=== PATIENT | female | born 1965 ===

== ENCOUNTER 2017-07-31 09:40 | Inpatient (IN) | payer MEDICAID ==
[2017-07-23 14:32] VITALS: BMI 24.1
[2017-07-31] MEDS ORDERED: ceFAZolin IV 1 gm in Dextrose 2 GM/100 ML BAG IVPB ONE (10:44)
[2017-07-31] MEDS ORDERED: Propofol 10 mg/ml Inj (20 ML) ONE (10:59)
[2017-07-31] MEDS ORDERED: ePHEDrine 50 mg/ml Inj ONE (10:59)
[2017-07-31] MEDS ORDERED: Midazolam 2 MG/2 ML VIAL ONE (10:59)
[2017-07-31] MEDS ORDERED: Rocuronium 10 mg/ml (5 ml) ONE (10:59)
[2017-07-31] MEDS ORDERED: Succinylcholine 200 mg/10 ml Inj IV ONE (11:00)
[2017-07-31] MEDS ORDERED: Lidocaine 4% (Laryng-O-Jet) Kit MM ONE (11:00)
[2017-07-31] MEDS ORDERED: Dexamethasone 4 mg/1 ml ONE (12:23)
[2017-07-31] MEDS ORDERED: Bupivacaine HCl/Epi 0.5% 1:20000 30 ML SOL IJ ONE (12:30)
[2017-07-31] MEDS ORDERED: Triamcinolone Acetonide 40 mg/mL Inj ONE (13:00)
[2017-07-31] MEDS ORDERED: Lactated Ringer's 1,000 ML IV ONE ×2 (13:15→13:16)
[2017-07-31] MEDS ORDERED: Methylene Blue 10 mg/mL(10ml) IV ONE (13:22)
[2017-07-31] MEDS ORDERED: DiphenhydrAMINE 50 mg/ml Inj ONE (14:14)
[2017-07-31] MEDS ORDERED: Desflurane Inhalation Anesthetic Liq (240 ml) ONE (14:19)
--- NOTE | 2017-07-31 14:49 | PCM.SURG1 ---
Surgeon's Initial Post Op Note - Surgeon's Notes Surgeon: vandana amaya md Lead Sprinkler: rambo PASCUAL Type of Anesthesia: General Endo, Local Pre-Operative Diagnosis: Advanced vaginal vault prolapse. Cystocele stage IV. Urinary incontinence mixed. Chronic pelvic pain and pressure Operative Findings: Cystocele stage 4. Vaginal vault prolapse after hysterectomy. Extensive adhessions; bladder and bowel adhesisons. Extermly weak connective tissue, paper thin anterior vaginal wall under the bladder c/w stage 4 cystocele. Due to Extremly weak and thin vesicovaginal wall, decision made to abort placement of mesh (SCP) as planned initialy due to high risk of mesh erosion. Attempts were made to separate the bladder from the anterior vaginal wall in an attemp to placed the Ymesh used in the sacrocolpopexy. The bladder was tightly adherant to the thin vaginal wall and possible bladder defect was noted. The defect was isolated, appeared small near the dome of the bladder. The noted small simple defect near the dome of the bladder was repaired in 2 layers with 2-0 and 3-0 vicryl sutures in continurus fashion and resulted in a water tight repair. Cystosocpy and leak test were performed with negative findings. A uterosacroligament suspenssion was completed to reduce the epical prolapse but with limited results. Post-Operative Diagnosis: Advanced vaginal vault prolapse after hysterectomy. Cystocele stage IV. Urinary incontinence mixed. Pelvic bowel and bladder adhessions. Chronic pelvic pain and pressure Operation Performed: Robotic Uterosacroligament suspenssions (aborted Sacrocolpopexy). Robotic enterolysis. Robotic cystotomy repair. Diagnostic cystoscopy Specimen/Specimens Removed: none Estimated Blood Loss: EBL {In ML}: 10 Blood Products Given: N/A Drains Used: No Drains Post-Op Condition: Good Date of Surgery/Procedure: 07/31/17 Time of Surgery/Procedure: 14:51
--- NOTE | 2017-07-31 15:01 | PCM.OP ---
Operative Report - Operative Report Date of Surgery/Procedure: 07/31/17 Time of Surgery/Procedure: 14:59 Surgeon: vandana amaya md Push Bench Operator Helper: rambo PASCUAL Anesthesia/Sedation: Gen with ET tube, Aracely Hurd MD Pre-Operative Diagnosis: Advanced vaginal vault prolapse. Cystocele stage IV. Urinary incontinence mixed. Chronic pelvic pain and pressure Post-Operative Diagnosis: Advanced vaginal vault prolapse after hysterectomy. Cystocele stage IV. Urinary incontinence mixed. Pelvic bowel and bladder adhessions. Chronic pelvic pain and pressure. Abdominal keloid scars. Indication for Surgery: Worsening vaginal vault prolapse following hysterectomy. Worsening pain and pressure as a result of cystocele. Worsening mixed urinary incontinence. Operative Findings: Cystocele stage 4. Vaginal vault prolapse after hysterectomy. Extensive adhessions; bladder and bowel adhesisons. Extermly weak connective tissue, paper thin anterior vaginal wall under the bladder c/w stage 4 cystocele. Due to Extremly weak and thin vesicovaginal wall, decision made to abort placement of mesh (SCP) as planned initialy due to high risk of mesh erosion. Attempts were made to separate the bladder from the anterior vaginal wall in an attemp to placed the Ymesh used in the sacrocolpopexy. The bladder was tightly adherant to the thin vaginal wall and possible bladder defect was noted. The defect was isolated, appeared small near the dome of the bladder. The noted small simple defect near the dome of the bladder was repaired in 2 layers with 2-0 and 3-0 vicryl sutures in continurus fashion and resulted in a water tight repair. Cystosocpy and leak test were performed with negative findings. A uterosacroligament suspenssion was completed to reduce the epical prolapse but with limited results. Procedure/Operation Description: Robotic Uterosacroligament suspenssions ( aborted Sacrocolpopexy). Robotic enterolysis. Robotic cystotomy repair. Revision excision of abdominal keloid scars. (5 incisions). Diagnostic cystoscopy. detailed operative report. This is a 51 years old female with long-standing and worsening symptoms of bladder prolapse and associated urinary incontinence and pelvic pain for several years. The patient underwent a total robotic hysterectomy for uterine prolapse in the recent past, and at the time, declined any colpo-suspension with mesh. The hysterectomy was completed along with uterosacral ligament suspension avoiding mesh graft augmentation. The prior hysterectomy and uterosacro-ligament suspension corrected the severe epical uterine prolapse but with limited support for the cystocele, stage III at the time of surgery. Gradually since her robotic procedure, the bladder prolapse worsened to a stage 4 with worsening bladder dysfunction including mixed urinary incontinence. The patient is currently reporting a vaginal bulge and pressure that is worsening over time. The patient reported these symptoms to be debilitating and adversely affecting her quality of life. The patient is also reporting leakage of urine upon exertion, coughing sneezing as well as urgency incontinence. A complete work up in the office which included an ultrasound and urodynamic study revealed a picture of mixed urinary incontinence. The patient had a long period of failed conservative management. Following a complete workup, a long discussion of surgical vs. other conservative management was completed. A decision was made to precede with a robotic assisted Sacrocolpopexy using polypropylene mesh graft to correct for the severe vaginal vault prolapse following the hysterectomy. After a detailed discussion about the pros and cons of using polypropylene mesh for colposuspension, all benefits and risks were reviewed including but not limited to the risk of infection, mesh erosion / extrusion, chronic pain and dyspareunia. In addition, the FDA warning about mesh utilization for prolapse and incontinence surgery was reviewed in details, and specific written consent was obtained. The patient elected to proceed with a mesh Sacrocolpopexy procedure today fully understanding the risk associated with utilizing mesh material. Other alternatives were also offered to the patient, including a biological graft such as porcine sling as well as the patient owns fascia as sling material, she elected to proceed with a mesh graft despite the associated risks. The patient was also informed of the possible difficulty of completing the Sacrocolpopexy in light of severe adhesions and distorted anatomy following the hysterectomy. After proper consent was obtained from the patient, patient was taken to the operating room where general anesthesia was obtained without difficulty. She was placed in the dorsal lithotomy position, her legs were placed in adjustable Ildefonso stirrups, and careful attention was placed not to over-flex or over-rotate the lower extremities. Flores catheter was inserted under sterile conditions. She was prepped and draped appropriately for a robotic sacrocolpopexy procedure. Examination under anesthesia revealed a widened introitus with a fourth degree cystourethrocele and epical vaginal prolapse. After appropriate prep, the patient was draped in the usual manner for robotic surgery. While tenting the abdominal wall, a Veres needle was inserted through the umbilicus and pnuemoperitoneum was obtained with approx. 3L of CO2 gas. 3 Robotic ports were used for this procedure. We used the same old incisions used for the robotic procedure completed prior. The patient formed keloids on the prior incisions and all keloids were excised and sent to pathology. The first incision, .8 cm in length was made approx. 4 cm superior to the umbilicus and a trocar was inserted. A robotic camera was inserted and an initial survey was completed. Extensive peritoneal adhesions were noted in the posterior cul-de-sac and involving loops of bowel in the pelvic and abdominal cavity. Both ovaries were noted, uterus and fallopian tubes were surgically absent / removed. Tight adhesions over the vaginal cuff were noted. Significant connective tissue laxity and weakness was noted as the instruments and trocar were inserted with little resistance. The second robotic trocar was inserted through an incision approx. 5 cm superior to the iliac crest on the left side and a third robotic port inserted in a mirror image on the contralateral side. The third robotic port was inserted on the patient right side approx. 7 cm right lateral to the camera port. An special event assistant port was inserted 7 cm left lateral the camera port. All robotic ports were inserted through 8 mm incisions. The patient was placed in Trendelenburg position and lateral side robotic docking was accomplished. Extensive lysis of adhesions was completed to allow access to the vaginal cuff and over the sacrum region in the midline. The peritoneum over and near the sacrum promontory was entered sharply and the incision was extended. The longitudinal ligament over the sacrum was cleared and isolated with good hemostasis. Attention was then turned to the presacral space. The peritoneum overlying it was tented upward and incised sagittally all the way down to the posterior vaginal wall keeping the right ureter in view at all times. The longitudinal ligament over the scarum was cleared and ready for the anchoring of the long arm of the Y mesh. Attention was them turned to the anterior vaginal wall and vaginal cuff. Multiple carful and meticulous attempts were made to separate the bladder from the anterior vaginal wall, using blunt and sharp dissection, including retrograde filling the bladder to aid in the bladder dissection. Tight bladder adhesions to the vaginal cuff were noted and lysed off. In the process of clearing the anterior vaginal wall for the placement of mesh, it was noted that the vaginal wall was paper thin, essentially paper thin especially close to the vaginal cuff. Decision was made to abort placing a mesh graft in the anterior vaginal wall to avoid a high likelihood of mesh erosion and position bladder extrusion of mesh. Decision was made to abort the Sacrocolppexy procedure with mesh and to reinforce the vaginal cuff and the current epical suspension with a revision of uterusacroligament suspension instead. A significant concern of potential vaginal cuff dehiscence was raised inspecting the thin vaginal wall under the bladder. An attempt was made to dissect the bladder further from the vaginal cuff in order to reinforced the cuff. At this point, a possible bladder defect was noted near the vaginal cuff. The bladder was retrograde filled with dilute methylene blue solution and the defect was clearly noted and tagged. Further dissection to isolate the defect was completed and an inspection of the defect revealed a simple cystotomy near the dome of the bladder. Following the isolation of the bladder defect, a two layer closure was completed using 2-0 and 3-0 vycryl suture material in continues fashion. The bladder was once again retrograde filled to check for bladder wall integrity and leak test was performed. The bladder was filled with dilute methylene blue solution and the repair appeared to be water tight with no leakage. Significant length of the vaginal cuff was now clear of the bladder and the cuff was reinforced with 2-0 v -lock suture material, the uterosacral ligaments were suspended at the cuff. The ureters were noted to be clear of the uterosacral ligaments and avoiding any kinking or abstracting the ureters the vaginal cuff was suspended. The peritoneum was closed with 2-0 monocryl along the previously made incisions along the sacrum promontory and pericolic gutter. The peritoneum was closed over the vaginal cuff with similar suture. The pelvis was irrigated copiously and freed of all clots and debris. Excellent hemostasis was noted. The abdomen was throughout irrigated and cleared of all clots and debris. FloSeal was applied to the incision sites. Excellent hemostasis was again noted. All robotic and laparoscopic instruments removed under direct visualization. The robotic arms were undocked, and a da Dave robotic system was wheeled away from the patient's bedside. Both special event assistant and camera ports were closed at the fascial layer utilizing a 2-0 Vicryl suture material in interrupted fashion. Pneumoperitoneum was reduced and all skin incisions were closed utilizing 4-0 Monocryl in a subcutaneous fashion. The fascia was closed with o Vicryl and the skin was closed with a 4-0 monocryl in subQ fashion. Dermabond was applied to all incisions. At the conclusion of this procedure, a diagnostic cystoscopy was completed. The Flores catheter was removed; the bladder was distended with approximately 300 cc of normal saline. A 30 cystoscope was introduced and a survey of the bladder anatomy was completed. The trigone appeared normal both ureter urfices noted normal efluxing urine freely, the dome of the bladder appeared normal with a small simple repair line which was water tight. The urethra appeared normal. A Flores catheter was reinserted. Patient emerged from general anesthesia without difficulty, and was taken to recovery room in stable condition. Prior to incision the patient received antibiotics, prior to closure sponge lap and needle counts were correct x2. Estimated Blood Loss: 10 Blood Replaced: none Sponge/Instrument Count: correct times 2 Drains: none Complications: simple cystotomy repair and reiforcememnt of weak vaginal cuff. Sacrocolpopexy was aborted due to extremly thin anterior vaginal wall and a high risk likelehood of potential mesh erosion. Specimen: none Discharge & Condition: pt admitted as IP
[2017-07-31] MEDS ORDERED: Oxycodone/Acetaminophen 5/325 mg Tab PO PRN (15:04)
[2017-07-31] MEDS ORDERED: Sodium Chloride 0.9% 1,000 ML IV SCH (15:15)
[2017-07-31] MEDS ORDERED: Lactated Ringer's 1,000 ML IV SCH (15:15)
[2017-07-31] MEDS: HYDROmorphone 0.5 mg/0.5 ml ISec IVP PRN ×2 (16:20→16:40)
[2017-07-31] MEDS ORDERED: ceFAZolin IV 2 gm in Dextrose 2 GM/50 ML BAG IVPB SCH (17:00)
[2017-07-31] MEDS: ceFAZolin IV 2 gm in Dextrose 2 GM/50 ML BAG IVPB SCH (20:45)
[2017-08-01] MEDS: ceFAZolin IV 2 gm in Dextrose 2 GM/50 ML BAG IVPB SCH ×3 (04:14→20:28)
[2017-08-01] MEDS ORDERED: VITAMIN B COMPLEX PO SCH (09:00)
--- NOTE | 2017-08-01 09:17 | CP.PCM.CON ---
History of Present Illness - History of Present Illness History of Present Illness: 51 yo ,f, PMhx/o HTN, DM , HLP , Depresson , Cystocele is seen after usrgery POD #1 s/p robotic uterosacral ligament suspension, enterolysis, cystostomy repair, cystoscopy. Patient reports a surgery about 1 year ago, but states that 2 months after last surgery started with sympotms again with bladder prolapse sensation any time she urinates and dysuria, assoiciated with occs urinary incontinence. she denies fever, nausea, vomiting, diarrhea, abd pain. Patient seen and examined wit Attending Dr Moni velasquez. No overnight events, pain controlled with medications, on antibiotics and liquid diet tolerated.jackson with normal yellow urine amount 200 ml Allergies: tramadol PSurgHx: cystocele 2016, B/l bunion PObhx: A4 menopause 4 years ago. PShx: No ETOH,rect drugs, cig Past Patient History - Past Medical History & Family History Past Medical History?: Yes - Past Social History Smoking Status: Never Smoked - CARDIAC Hx Cardiac Disorders: No - PULMONARY Hx Respiratory Disorders: No - NEUROLOGICAL Hx Neurological Disorder: Yes Hx Migraine: Yes - HEENT Hx HEENT Problems: No - RENAL Hx Chronic Kidney Disease: No - ENDOCRINE/METABOLIC Hx Endocrine Disorders: Yes Hx Diabetes Mellitus Type 2: Yes - HEMATOLOGICAL/ONCOLOGICAL Hx Blood Disorders: No Hx Blood Transfusions: No - INTEGUMENTARY Hx Dermatological Problems: No - MUSCULOSKELETAL/RHEUMATOLOGICAL Hx Musculoskeletal Disorders: No - GASTROINTESTINAL Hx Gastrointestinal Disorders: No - GENITOURINARY/GYNECOLOGICAL Hx Genitourinary Disorders: No - PSYCHIATRIC Hx Psychophysiologic Disorder: No Hx Anxiety: Yes Hx Emotional Abuse: No Hx Physical Abuse: No - SURGICAL HISTORY Hx Surgeries: Yes Hx Hysterectomy: Yes (LAPAROSCOPIC DIMITRI-BSO) Hx Orthopedic Surgery: ([email or web address]) Other/Comment: D/C, bladder lift - ANESTHESIA Hx Anesthesia: Yes Hx Anesthesia Reactions: No Hx Malignant Hyperthermia: No Has any member of the family had a problem w/ anesthesia?: No Meds Home Medications: Home Medication List Medication Instructions Recorded Confirmed Type Docusate [Colace] 100 mg PO BID cap 08/01/17 Rx Nitrofurantoin Macrocrystals 100 mg PO BID #20 cap 08/01/17 Rx [Macrobid] oxyCODONE/Acetaminophen [Percocet 2 tab PO Q4H PRN #30 tab 08/01/17 Rx 5/325 mg Tab] Allergies/Adverse Reactions: Allergies Allergy/AdvReac Type Severity Reaction Status Date / Time tramadol Allergy ANAPHYLAXIS Verified 07/31/17 11:15 - Medications Medications: Current Medications Atorvastatin Calcium (Lipitor) 10 mg PO HS [facility] Duloxetine HCl (Cymbalta) 20 mg PO DAILY [facility] Last Admin: 07/31/17 21:55 Dose: 20 mg Home Med (Empagliflozin [Jardiance]) 25 mg PO DAILY [facility] Home Med (Vitamin B Complex [Balance B-100]) 1 tab PO DAILY [facility] Hydromorphone HCl (Dilaudid) 2 mg IVP Q3H PRN PRN Reason: Pain, severe (8-10) Last Admin: 08/01/17 07:22 Dose: 2 mg Lactated Ringer's (Lactated Ringer's) 1,000 mls @ 125 mls/hr IV .Q8H [facility] Last Admin: 08/01/17 00:09 Dose: 125 mls/hr Sodium Chloride (Sodium Chloride 0.9%) 1,000 mls @ 100 mls/hr IV .Q10H [facility] Last Admin: 08/01/17 01:15 Dose: Not Given Cefazolin Sodium/Dextrose (Ancef Iv 2 Gm Duplex) 2 gm in 50 mls @ 50 mls/hr IVPB Q8H [facility] PRN Reason: Protocol Last Admin: 08/01/17 04:14 Dose: 50 mls/hr Ketorolac Tromethamine (Toradol) 30 mg IVP Q6H [facility] Last Admin: 08/01/17 04:13 Dose: 30 mg Metformin HCl (Glucophage) 1,000 mg PO DAILY [facility] Ondansetron HCl (Zofran Inj) 4 mg IVP Q6 PRN PRN Reason: Nausea/Vomiting Oxycodone/Acetaminophen (Percocet 5/325 Mg Tab) 2 tab PO Q4H PRN PRN Reason: Pain, moderate (4-7) Stop: 08/03/17 15:05 Physical Exam - Constitutional Appears: No Acute Distress - Head Exam Head Exam: ATRAUMATIC, NORMOCEPHALIC - Eye Exam Eye Exam: Normal appearance - Respiratory Exam Respiratory Exam: Clear to Auscultation Bilateral. absent: Rales, Rhonchi, Wheezes - Cardiovascular Exam Cardiovascular Exam: REGULAR RHYTHM, +S1, +S2 - GI/Abdominal Exam GI & Abdominal Exam: Normal Bowel Sounds, Soft, Tenderness. absent: Guarding, Rebound Additional comments: Generalized mild TD, no rebound, no guarding - Extremities Exam Extremities exam: Positive for: normal inspection. Negative for: pedal edema - Back Exam Back exam: NORMAL INSPECTION - Neurological Exam Neurological exam: Alert, Oriented x3 - Psychiatric Exam Psychiatric exam: Normal Mood - Skin Skin Exam: Normal Color Results - Vital Signs Recent Vital Signs: Last Vital Signs Temp 98.6 F 08/01/17 07:46 Pulse 84 08/01/17 07:46 Resp 18 08/01/17 07:46 BP 113/63 08/01/17 07:46 Pulse Ox 96 08/01/17 07:46 - Labs Labs: Laboratory Results - last 24 hr 07/31/17 07/31/17 10:34 15:09 POC Glucose (mg/dL) 155 H 236 H Assessment & Plan - Assessment and Plan (Free Text) Plan: Assessment and Plan (1) Vaginal vault prolapse Assessment & Plan: POD#1 s/p robotic uterosacral ligament suspension, enterolysis, cystostomy repair, cystoscopy -plan for d/c home when pain controlled -pain meds -encourage OOB -pain meds -advance diet -jackson to remain until follow up visit 08/10 Status: Acute 2) HTN controlled 3) DM chronic 4) Depression chronic (5) Pelvic pain Status: Chronic 6) DVT Prophylaxis SCD
--- NOTE | 2017-08-01 12:42 | CP.PCM.PN ---
Subjective - Date & Time of Evaluation Date of Evaluation: 08/01/17 Time of Evaluation: 12:41 - Subjective Subjective: Patient still complaining of significant pain when she moves. Advised pt manuel to remain until f/u visit 08/10. Spoke with daughter via telephone per pt request. Denies CP/SOB/dizziness/n/v. Objective - Vital Signs/Intake and Output Vital Signs (last 24 hours): Temp Pulse Resp BP Pulse Ox 98.6 F 84 18 113/63 96 08/01/17 07:46 08/01/17 07:46 08/01/17 07:46 08/01/17 07:46 08/01/17 07:46 Intake and Output: 08/01/17 08/01/17 06:59 18:59 Intake Total 425 Output Total 170 Balance 255 - Medications Medications: Current Medications Atorvastatin Calcium (Lipitor) 10 mg PO HS [facility] Duloxetine HCl (Cymbalta) 20 mg PO DAILY [facility] Last Admin: 08/01/17 09:39 Dose: 20 mg Home Med (Empagliflozin [Jardiance]) 25 mg PO DAILY [facility] Home Med (Vitamin B Complex [Balance B-100]) 1 tab PO DAILY [facility] Hydromorphone HCl (Dilaudid) 2 mg IVP Q3H PRN PRN Reason: Pain, severe (8-10) Last Admin: 08/01/17 07:22 Dose: 2 mg Lactated Ringer's (Lactated Ringer's) 1,000 mls @ 125 mls/hr IV .Q8H [facility] Last Admin: 08/01/17 00:09 Dose: 125 mls/hr Sodium Chloride (Sodium Chloride 0.9%) 1,000 mls @ 100 mls/hr IV .Q10H [facility] Last Admin: 08/01/17 01:15 Dose: Not Given Cefazolin Sodium/Dextrose (Ancef Iv 2 Gm Duplex) 2 gm in 50 mls @ 50 mls/hr IVPB Q8H [facility] PRN Reason: Protocol Last Admin: 08/01/17 04:14 Dose: 50 mls/hr Ketorolac Tromethamine (Toradol) 30 mg IVP Q6H [facility] Last Admin: 08/01/17 09:43 Dose: Not Given Metformin HCl (Glucophage) 1,000 mg PO DAILY [facility] Last Admin: 08/01/17 09:39 Dose: 1,000 mg Ondansetron HCl (Zofran Inj) 4 mg IVP Q6 PRN PRN Reason: Nausea/Vomiting Oxycodone/Acetaminophen (Percocet 5/325 Mg Tab) 2 tab PO Q4H PRN PRN Reason: Pain, moderate (4-7) Stop: 08/03/17 15:05 - GI/Abdominal Exam Additional comments: abd slightly distended, soft, mildly tender, incisions intact, dry. Assessment and Plan (1) Vaginal vault prolapse Assessment & Plan: POD#1 s/p robotic uterosacral ligament suspension, enterolysis, cystostomy repair, cystoscopy -plan for d/c home when pain controlled -pain meds -encourage OOB -pain meds -advance diet -jackson to remain until follow up visit 08/10 -d/w Dr. Roe, agrees wqith above Status: Acute (2) Vaginal vault prolapse after hysterectomy Status: Acute (3) Cystocele Status: Acute (4) Pelvic pain Status: Chronic (5) Urinary incontinence Status: Chronic
[2017-08-02] MEDS: ceFAZolin IV 2 gm in Dextrose 2 GM/50 ML BAG IVPB SCH ×2 (03:18→12:28)
--- NOTE | 2017-08-02 08:22 | CP.PCM.PN ---
Subjective - Date & Time of Evaluation Date of Evaluation: 08/02/17 Time of Evaluation: 08:19 - Subjective Subjective: Patient states she is still having a lot of pain. She is passing gas. She says she still has a lilttle appetite. No new complaints. Objective - Vital Signs/Intake and Output Vital Signs (last 24 hours): Temp Pulse Resp BP Pulse Ox 98.5 F 70 19 110/65 96 08/02/17 04:30 08/02/17 04:30 08/02/17 04:30 08/02/17 04:30 08/02/17 04:30 Intake and Output: 08/02/17 08/02/17 06:59 18:59 Output Total 200 Balance -200 - Medications Medications: Current Medications Atorvastatin Calcium (Lipitor) 10 mg PO HS [facility] Last Admin: 08/01/17 22:21 Dose: 10 mg Docusate Sodium (Colace) 100 mg PO BID [facility] Last Admin: 08/01/17 16:00 Dose: 100 mg Duloxetine HCl (Cymbalta) 20 mg PO DAILY [facility] Last Admin: 08/01/17 09:39 Dose: 20 mg Home Med (Empagliflozin [Jardiance]) 25 mg PO DAILY [facility] Home Med (Vitamin B Complex [Balance B-100]) 1 tab PO DAILY [facility] Hydromorphone HCl (Dilaudid) 2 mg IVP Q3H PRN PRN Reason: Pain, severe (8-10) Last Admin: 08/01/17 07:22 Dose: 2 mg Cefazolin Sodium/Dextrose (Ancef Iv 2 Gm Duplex) 2 gm in 50 mls @ 50 mls/hr IVPB Q8H [facility] PRN Reason: Protocol Last Admin: 08/02/17 03:18 Dose: 50 mls/hr Ketorolac Tromethamine (Toradol) 30 mg IVP Q6H [facility] Last Admin: 08/02/17 03:18 Dose: 30 mg Metformin HCl (Glucophage) 1,000 mg PO DAILY [facility] Last Admin: 08/01/17 09:39 Dose: 1,000 mg Ondansetron HCl (Zofran Inj) 4 mg IVP Q6 PRN PRN Reason: Nausea/Vomiting Oxycodone/Acetaminophen (Percocet 5/325 Mg Tab) 2 tab PO Q4H PRN PRN Reason: Pain, moderate (4-7) Stop: 12/22/17 15:05 - GI/Abdominal Exam Additional comments: +BS, abd much less distended today, incisions intact, dry Assessment and Plan (1) Vaginal vault prolapse Assessment & Plan: POD#2 OOB keep jackson intact d/c home today f/u 08/10 Encourage ambulation pain meds/macrobid x 10d d/w Dr. Roe, agrees with above Status: Acute (2) Vaginal vault prolapse after hysterectomy Status: Acute (3) Cystocele Status: Acute (4) Pelvic pain Status: Chronic (5) Urinary incontinence Status: Chronic
[2017-08-02 08:55] VITALS: RESP 20
--- NOTE | 2017-08-02 09:42 | CP.PCM.PN ---
Subjective - Date & Time of Evaluation Date of Evaluation: 08/02/17 Time of Evaluation: 07:45 - Subjective Subjective: Patient seen and examined bedside with Dr Monten[place]ro. Patient reports feeling better but with abd pain controlled with medications. Denies fever, nausea, vomiting, diarrhea. Jackson with urine normal color Objective - Vital Signs/Intake and Output Vital Signs (last 24 hours): Temp Pulse Resp BP Pulse Ox 98.3 F 73 20 123/71 97 08/02/17 08:55 08/02/17 08:55 08/02/17 08:55 08/02/17 08:55 08/02/17 08:55 Intake and Output: 08/02/17 08/02/17 06:59 18:59 Output Total 200 Balance -200 - Medications Medications: Current Medications Atorvastatin Calcium (Lipitor) 10 mg PO HS [facility] Last Admin: 08/01/17 22:21 Dose: 10 mg Docusate Sodium (Colace) 100 mg PO BID [facility] Last Admin: 08/02/17 08:47 Dose: 100 mg Duloxetine HCl (Cymbalta) 20 mg PO DAILY [facility] Last Admin: 08/02/17 08:46 Dose: 20 mg Home Med (Empagliflozin [Jardiance]) 25 mg PO DAILY [facility] Last Admin: 08/02/17 08:46 Dose: 25 mg Home Med (Vitamin B Complex [Balance B-100]) 1 tab PO DAILY [facility] Hydromorphone HCl (Dilaudid) 2 mg IVP Q3H PRN PRN Reason: Pain, severe (8-10) Last Admin: 08/01/17 07:22 Dose: 2 mg Cefazolin Sodium/Dextrose (Ancef Iv 2 Gm Duplex) 2 gm in 50 mls @ 50 mls/hr IVPB Q8H [facility] PRN Reason: Protocol Last Admin: 08/02/17 03:18 Dose: 50 mls/hr Ketorolac Tromethamine (Toradol) 30 mg IVP Q6H [facility] Last Admin: 08/02/17 08:46 Dose: 30 mg Metformin HCl (Glucophage) 1,000 mg PO DAILY [facility] Last Admin: 08/02/17 08:47 Dose: 1,000 mg Ondansetron HCl (Zofran Inj) 4 mg IVP Q6 PRN PRN Reason: Nausea/Vomiting Oxycodone/Acetaminophen (Percocet 5/325 Mg Tab) 2 tab PO Q4H PRN PRN Reason: Pain, moderate (4-7) Stop: 08/03/17 15:05 - Constitutional Appears: Non-toxic, No Acute Distress - Head Exam Head Exam: ATRAUMATIC, NORMOCEPHALIC - Eye Exam Eye Exam: Normal appearance - ENT Exam ENT Exam: Mucous Membranes Moist - Neck Exam Neck Exam: Normal Inspection - Respiratory Exam Respiratory Exam: Clear to Ausculation Bilateral. absent: Rales, Rhonchi, Wheezes - Cardiovascular Exam Cardiovascular Exam: REGULAR RHYTHM, +S1, +S2 - GI/Abdominal Exam GI & Abdominal Exam: Soft, Tenderness, Normal Bowel Sounds Additional comments: mild Td on palpation suprapubic area, no guarding, no rebound TD - Extremities Exam Extremities Exam: Normal Inspection. absent: Calf Tenderness - Back Exam Back Exam: NORMAL INSPECTION - Neurological Exam Neurological Exam: Alert, Awake, Oriented x3 - Psychiatric Exam Psychiatric exam: Normal Affect, Normal Mood - Skin Skin Exam: Intact Assessment and Plan - Assessment and Plan (Free Text) Plan: Assessment and Plan (1) Vaginal vault prolapse Assessment & Plan: POD#2 s/p robotic uterosacral ligament suspension, enterolysis, cystostomy repair, cystoscopy -plan for d/c home when pain controlled -pain meds -encourage OOB -pain meds -advance diet -jackson to remain until follow up visit 08/10 Status: Acute 2) HTN controlled 3) DM chronic 4) Depression chronic (5) Pelvic pain Status: Chronic 6) DVT Prophylaxis SCD
[2017-08-02 16:00] VITALS: BP 127/73; PULSE 67; TEMP 98; O2SAT 96
== END 2017-08-02 17:00 | disposition home or self-care (01) | DRG 356 ==
LOC: H.OPSURG 09:40 → H.MEDSURG1 15:04
PROVIDERS: ADMIT Obstetrics & Gynecology; ATTEND Obstetrics & Gynecology
PROC: 0DNW4ZZ Release Peritoneum, Percutaneous Endoscopic Approach (ICD-10-PCS; 2017-07-31)
PROC: 0TNB4ZZ Release Bladder, Percutaneous Endoscopic Approach (ICD-10-PCS; 2017-07-31)
PROC: 0TQB4ZZ Repair Bladder, Percutaneous Endoscopic Approach (ICD-10-PCS; 2017-07-31)
PROC: 8E0W4CZ Robotic Assisted Procedure of Trunk Region, Percutaneous Endoscopic Approach (ICD-10-PCS; 2017-07-31)
PROC: 0USG4ZZ Reposition Vagina, Percutaneous Endoscopic Approach (ICD-10-PCS; principal; 2017-07-31 09:45)
PROC: 0HB7XZZ Excision of Abdomen Skin, External Approach (ICD-10-PCS; 2017-07-31 09:45)
DX: N99.3 Prolapse of vaginal vault after hysterectomy (principal); E11.9 Type 2 diabetes mellitus without complications; N99.71 Accidental puncture and laceration of a genitourinary system organ or structure during a genitourinary system procedure; I10 Essential (primary) hypertension; E78.5 Hyperlipidemia, unspecified; F32.9 Major depressive disorder, single episode, unspecified; N81.10 Cystocele, unspecified; N39.46 Mixed incontinence; K66.0 Peritoneal adhesions (postprocedural) (postinfection); N32.89 Other specified disorders of bladder; L91.0 Hypertrophic scar; Y83.8 Other surgical procedures as the cause of abnormal reaction of the patient, or of later complication, without mention of misadventure at the time of the procedure